=== PATIENT | male | born 1950 | race Caucasian/White ===

== ENCOUNTER 2016-11-18 23:39 | Emergency (ER) | payer MEDICARE ==
[~2016-11-18 23:39] MED LIST: ALDACTONE25 MG PO; COUMADIN4 MG PO; FENOFIBRATE; FLEXERIL10 MG PO; HUMALOG MI100 UNIT/4 SUBCUT; HUMALOG100 UNIT/1 SUBCUT; KLONOPIN0.5 MG PO; KLOR-CON M2020 MEQ PO; LASIX80 MG PO; LIPITOR80 MG PO; NEURONTIN400 MG PO; PRINIVIL10 MG PO; VALIUM5 MG PO
[2017-04-17] MEDS ORDERED: ZAROXOLYN5 MG PO (09:57)
[2017-04-17] MEDS ORDERED: VICODIN 5-3001 EACH PO (09:59)
[2017-04-17] MEDS ORDERED: COREG6.25 MG PO (10:00)
[2017-04-17] MEDS ORDERED: LANOXIN125 MCG PO (10:01)
[2017-04-17] MEDS ORDERED: LIPITOR80 MG PO (10:01)
[2017-04-17] MEDS ORDERED: COUMADIN4 MG PO (10:02)
[2017-04-17] MEDS ORDERED: ASPIRIN81 MG PO (10:05)
== END 2016-11-19 01:55 | disposition short-term general hospital (02) ==
LOC: ER 23:39
DX: I48.91 Unspecified atrial fibrillation (principal); J90 Pleural effusion, not elsewhere classified; R74.8 Abnormal levels of other serum enzymes; F17.210 Nicotine dependence, cigarettes, uncomplicated; Z79.01 Long term (current) use of anticoagulants; I25.2 Old myocardial infarction; I25.10 Atherosclerotic heart disease of native coronary artery without angina pectoris; Z95.1 Presence of aortocoronary bypass graft; I50.9 Heart failure, unspecified; E11.9 Type 2 diabetes mellitus without complications; F32.9 Major depressive disorder, single episode, unspecified; Z79.82 Long term (current) use of aspirin; Z79.4 Long term (current) use of insulin
CPT/HCPCS: J2930; J8499